=== PATIENT | female | born 1975 | race African-American/Black ===

== ENCOUNTER 2018-01-10 14:07 | Inpatient (IN) | payer SELFPAY ==
[~2018-01-10] VITALS: Ht 165.1 cm; Wt 108.0 kg
[2018-01-10 14:46] LABS: BASOPHILS % 0.9 % (0.0-2.0); EOSINOPHILS % 5.7 % (0.0-5.0); LYMPHOCYTES % 14.2 % (20.0-50.0); MEAN CORPUSCULAR HEMOGLOBIN 13.5 pg (28.0-32.0); MEAN CORPUSCULAR VOLUME 50.8 fL (81.0-99.0); MEAN PLATELET VOLUME 8.2 fl (7.4-10.4); MONOCYTES % 6.6 % (2.0-8.0); NEUTROPHILS % 72.6 % (40.0-76.0); PLATELET 186 x1000/uL (130-400); RED BLOOD CELL COUNT 2.35 mill/uL (4.2-5.4); RED CELL DISTRIBUTION WIDTH 25.7 % (11.6-14.6)
[2018-01-10 14:51] LABS: HEMATOCRIT. 11.9 % (36.0-48.0); HEMOGLOBIN. 3.2 g/dL (12.0-16.0)
[2018-01-10 14:52] LABS: CHLORIDE 107 mEq/L (98-107)
[2018-01-10 14:53] LABS: INR 1.1; PROTHROMBIN TIME 11.5 sec (9.4-11.6)
[2018-01-10 14:59] LABS: PLATELET ESTIMATE NORMAL
[2018-01-10] MEDS ORDERED: NITROGLYCERIN 0.4MG TABLET SL SL PRN (18:15)
[2018-01-10] MEDS ORDERED: KETOROLAC 15MG/ML VIAL IV PRN (18:15)
[2018-01-10] MEDS ORDERED: ZOLPIDEM TARTRATE 5MG TABLET PO PRN (18:15)
[2018-01-10] MEDS ORDERED: ACETAMINOPHEN 325MG TABLET PO PRN (18:15)
[2018-01-10] MEDS ORDERED: DOCUSATE SODIUM 100MG CAPSULE PO PRN (18:15)
[2018-01-10] MEDS ORDERED: GUAIFENESIN 200MG/10ML SUGAR FREE UDC PO PRN (18:15)
[2018-01-10] MEDS ORDERED: NA PHOS,M-B/NA PHOS,DI-BA ENEMA 118ML PR PRN (18:15)
[2018-01-10] MEDS ORDERED: ONDANSETRON HCL 4MG/2ML VIAL IV PRN (18:15)
[2018-01-10] MEDS ORDERED: DIPHENHYDRAMINE 50MG/ML VIAL IV PRN (18:15)
[2018-01-10] MEDS ORDERED: IPRATROPIUM/ALBUTEROL 0.5-3(2.5)MG/3ML NEB INH PRN (18:15)
[2018-01-10 19:58] LABS: TOTAL IRON BINDING CAPACITY 470 ug/dL (250-450)
[2018-01-10 22:00] VITALS: BP 133/76
[2018-01-11] VITALS (19 sets, daily range): BP systolic 106–134; BP diastolic 58–77
[2018-01-11] MEDS: FERROUS SULFATE 300MG/5ML UDC PO SCH ×3 (09:55→18:05)
[2018-01-11] MEDS: PANTOPRAZOLE SODIUM 40 MG/VIAL IV SCH (09:55)
[2018-01-11 10:09] LABS: HEMATOCRIT 18.3 % (36.0-48.0); HEMOGLOBIN 5.5 g/dL (12.0-16.0)
[2018-01-11 10:10] LABS: INR 1.1; PROTHROMBIN TIME 11.6 sec (9.4-11.6)
[2018-01-11] MEDS: IRON SUCROSE COMPLEX 100 MG/5 ML ML IV SCH (13:18)
[2018-01-11 21:10] LABS: HEMOGLOBIN 6.8 g/dL (12.0-16.0)
[2018-01-11 21:11] LABS: HEMATOCRIT 22.9 % (36.0-48.0)
[2018-01-12] VITALS: BP 129/67
[2018-01-12 01:17] VITALS: BP 128/80
[2018-01-12 01:28] VITALS: BP 129/72
[2018-01-12 03:48] VITALS: BP 120/70
[2018-01-12 08:00] VITALS: BP 157/81
[2018-01-12] MEDS: PANTOPRAZOLE SODIUM 40 MG/VIAL IV SCH (08:03)
[2018-01-12] MEDS: IRON SUCROSE COMPLEX 100 MG/5 ML ML IV SCH (08:03)
[2018-01-12] MEDS: FERROUS SULFATE 300MG/5ML UDC PO SCH (08:03)
[2018-01-12 09:45] LABS: HEMATOCRIT 24.6 % (36.0-48.0); HEMOGLOBIN 7.8 g/dL (12.0-16.0)
[2018-01-12 10:33] VITALS: BP 141/89
== END 2018-01-12 12:03 | disposition home or self-care (01) | DRG 532 ==
LOC: ER 15:47 → 8WST 16:12 → EDBEDREQTM 16:15 → EDBEDREQ 16:15 → ENRESERV 20:25
PROVIDERS: ADMIT Internal Medicine; ATTEND Internal Medicine
PROC: 30233N1 Transfusion of Nonautologous Red Blood Cells into Peripheral Vein, Percutaneous Approach (ICD-10-PCS; principal; 2018-01-10)
DX: D25.9 Leiomyoma of uterus, unspecified (principal); E44.1 Mild protein-calorie malnutrition; N92.0 Excessive and frequent menstruation with regular cycle; D64.9 Anemia, unspecified; Z68.39 Body mass index [BMI] 39.0-39.9, adult
CPT/HCPCS: 36415; 36430; 71045; 76856; 80053; 83540; 83550; 83880; 84484; 85014; 85018; 85025; 85049; 85384; 85610; 86850; 86900; 86920; 93005; 99285; C9113; J7030; J7040; J7050; P9016

== ENCOUNTER 2018-08-05 12:24 | Inpatient (IN) | payer SELFPAY ==
[~2018-08-05] VITALS: Ht 170.2 cm; Wt 117.5 kg
[2018-08-05] MEDS ORDERED: SODIUM CHLORIDE 0.9% 1,000 ML IV ONE ×2 (13:05→17:00)
[2018-08-05 14:07] LABS: BASOPHILS % 0.3 % (0.0-2.0); EOSINOPHILS % 0.1 % (0.0-5.0); HEMATOCRIT. 23.1 % (36.0-48.0); HEMOGLOBIN. 7.4 g/dL (12.0-16.0); LYMPHOCYTES % 7.5 % (20.0-50.0); MEAN CORPUSCULAR HEMOGLOBIN 26.8 pg (28.0-32.0); MEAN CORPUSCULAR VOLUME 84.1 fL (81.0-99.0); MEAN PLATELET VOLUME 8.5 fl (7.4-10.4); NEUTROPHILS % 88.1 % (40.0-76.0); PLATELET 608 x1000/uL (130-400); RED BLOOD CELL COUNT 2.74 mill/uL (4.2-5.4); RED CELL DISTRIBUTION WIDTH 16.1 % (11.6-14.6)
[2018-08-05 14:14] LABS: CHLORIDE 102 mEq/L (98-107)
[2018-08-05 14:15] LABS: INR 1.1; PROTHROMBIN TIME 10.9 sec (9.1-11.1)
[2018-08-05 14:25] LABS: B-HCG QUANTITATIVE < 1 mIU/mL (<3)
[2018-08-05] MEDS ORDERED: CEFEPIME 1,000 MG in DEXTROSE 5% WATER 50 ML IV STA (16:51)
[2018-08-05] MEDS ORDERED: VANCOMYCIN 1 G PREMIX 200 ML IV STA (16:51)
[2018-08-05] MEDS ORDERED: DEXT 5%/0.45% NACL 1000ML 1,000 ML IV SCH (17:08)
[2018-08-05] MEDS ORDERED: DOCUSATE SODIUM 100MG CAPSULE PO PRN (17:15)
[2018-08-05] MEDS ORDERED: CLONIDINE 0.1MG TABLET PO PRN (17:15)
[2018-08-05] MEDS ORDERED: LORAZEPAM 2MG/ML CPJ IV PRN (17:15)
[2018-08-05] MEDS ORDERED: ONDANSETRON HCL 4MG/2ML INJ IV PRN (17:15)
[2018-08-05] MEDS ORDERED: ACETAMINOPHEN 650MG/20.3ML UDC GT PRN (17:15)
[2018-08-05 17:41] LABS: TOTAL IRON BINDING CAPACITY 333 ug/dL (250-450)
[2018-08-05 17:49] LABS: HCG SCREEN NEGATIVE
[2018-08-05 18:32] LABS: *AMPHETAMINES SCREEN URINE NEGATIVE (NEGATIVE); *BARBITURATES SCREEN URINE NEGATIVE (NEGATIVE); *BENZODIAZEPINES SCREEN URINE NEGATIVE (NEGATIVE); *COCAINE SCREEN URINE NEGATIVE (NEGATIVE); CANNABINOID URINE SCREEN NEGATIVE (NEGATIVE); METHADONE URINE SCREEN NEGATIVE (NEGATIVE); OPIATES URINE SCREEN NEGATIVE (NEGATIVE); PHENCYCLIDINE URINE SCREEN NEGATIVE (NEGATIVE)
[2018-08-05] MEDS ORDERED: CEFEPIME 1,000 MG in DEXTROSE 5% WATER 50 ML IV ONE (19:52)
[2018-08-05 23:47] VITALS: BP 125/72
[2018-08-06] VITALS (14 sets, daily range): BP systolic 96–144; BP diastolic 44–75
[2018-08-06 01:34] LABS: HEMATOCRIT 22.6 % (36.0-48.0); HEMOGLOBIN 7.3 g/dL (12.0-16.0)
[2018-08-06 07:30] LABS: BASOPHILS % 0.4 % (0.0-2.0); EOSINOPHILS % 0.1 % (0.0-5.0); LYMPHOCYTES % 14.9 % (20.0-50.0); MEAN CORPUSCULAR HEMOGLOBIN 27.6 pg (28.0-32.0); MEAN CORPUSCULAR VOLUME 83.9 fL (81.0-99.0); MEAN PLATELET VOLUME 8.2 fl (7.4-10.4); NEUTROPHILS % 75.6 % (40.0-76.0); PLATELET 418 x1000/uL (130-400); RED BLOOD CELL COUNT 2.49 mill/uL (4.2-5.4); RED CELL DISTRIBUTION WIDTH 15.9 % (11.6-14.6)
[2018-08-06 08:05] LABS: CLARITY URINE TURBID (CLEAR); COLOR URINE YELLOW (YELLOW); KETONES URINE NEGATIVE (NEGATIVE); LEUKOCYTE ESTERASE URINE 1+ (NEGATIVE); NITRITE URINE NEGATIVE (NEGATIVE); OCCULT BLOOD URINE 3+ (NEGATIVE); PROTEIN URINE 2+ (NEGATIVE); SPECIFIC GRAVITY URINE 1.028 (1.005-1.030); UROBILINOGEN URINE 0.2 E.U./dL (0.2-1.0)
[2018-08-06 08:29] LABS: CHLORIDE 105 mEq/L (98-107)
[2018-08-06 08:34] LABS: PHOSPHORUS 2.3 mg/dL (2.5-4.9)
[2018-08-06] MEDS: FERROUS SULFATE 325MG TABLET PO SCH ×3 (08:34→18:24)
[2018-08-06 08:37] LABS: HEMATOCRIT. 20.9 % (36.0-48.0); HEMOGLOBIN. 6.9 g/dL (12.0-16.0)
[2018-08-07] VITALS: BP 151/89
[2018-08-07 03:43] LABS: HEMOGLOBIN 8.6 g/dL (12.0-16.0)
[2018-08-07 04:00] VITALS: BP 143/86
[2018-08-07 06:54] LABS: BASOPHILS % 0.5 % (0.0-2.0); EOSINOPHILS % 0.4 % (0.0-5.0); HEMATOCRIT. 25.9 % (36.0-48.0); HEMOGLOBIN. 8.6 g/dL (12.0-16.0); LYMPHOCYTES % 15.4 % (20.0-50.0); MEAN CORPUSCULAR HEMOGLOBIN 28.1 pg (28.0-32.0); MEAN CORPUSCULAR VOLUME 85.3 fL (81.0-99.0); MONOCYTES % 9.6 % (2.0-8.0); NEUTROPHILS % 74.1 % (40.0-76.0); PLATELET 389 x1000/uL (130-400); RED BLOOD CELL COUNT 3.04 mill/uL (4.2-5.4); RED CELL DISTRIBUTION WIDTH 15.6 % (11.6-14.6)
[2018-08-07 07:22] LABS: CHLORIDE 104 mEq/L (98-107)
[2018-08-07 07:25] LABS: PHOSPHORUS 2.5 mg/dL (2.5-4.9)
[2018-08-07 08:00] VITALS: BP 138/69
[2018-08-07] MEDS: FERROUS SULFATE 325MG TABLET PO SCH ×2 (08:49→13:39)
[2018-08-07 12:00] VITALS: BP 109/68
[2018-08-07 15:18] VITALS: BP 109/68
== END 2018-08-07 17:44 | disposition home or self-care (01) | DRG 463 ==
LOC: ER 12:49 → 6WST 17:04 → EDBEDREQSVC 17:10 → EDBEDREQTM 17:10 → EDBEDREQ 17:10 → ENRESERV 19:33
PROVIDERS: ADMIT Internal Medicine Nephrology; ATTEND Internal Medicine Nephrology
PROC: 30233N1 Transfusion of Nonautologous Red Blood Cells into Peripheral Vein, Percutaneous Approach (ICD-10-PCS; principal; 2018-08-05)
DX: N39.0 Urinary tract infection, site not specified (principal); Z68.41 Body mass index [BMI] 40.0-44.9, adult; D64.9 Anemia, unspecified; D25.9 Leiomyoma of uterus, unspecified; E66.9 Obesity, unspecified; N83.202 Unspecified ovarian cyst, left side; N92.0 Excessive and frequent menstruation with regular cycle
CPT/HCPCS: 36415; 36430; 76856; 80048; 80305; 82728; 83540; 83550; 83605; 83735; 84100; 84702; 84703; 85014; 85018; 86850; 86900; 86920; 87077; 87186; 93005; 96361; 96365; 99291; J0692; J3370; J7030; J7050; J7060; P9016

== ENCOUNTER 2019-10-13 13:07 | Inpatient (IN) | payer MEDICAID ==
[~2019-10-13] VITALS: Ht 165.1 cm; Wt 103.4 kg
[2019-10-13 18:17] LABS: CLARITY URINE CLEAR (CLEAR); COLOR URINE YELLOW (YELLOW); KETONES URINE NEGATIVE (NEGATIVE); LEUKOCYTE ESTERASE URINE TRACE (NEGATIVE); NITRITE URINE NEGATIVE (NEGATIVE); OCCULT BLOOD URINE 3+ (NEGATIVE); PROTEIN URINE TRACE (NEGATIVE); SPECIFIC GRAVITY URINE 1.022 (1.005-1.030); UROBILINOGEN URINE 0.2 E.U./dL (0.2-1.0)
[2019-10-13 18:59] LABS: BASOPHILS % 0.5 % (0.0-2.0); EOSINOPHILS % 1.4 % (0.0-5.0); LYMPHOCYTES % 11.7 % (20.0-50.0); MEAN CORPUSCULAR HEMOGLOBIN 26.9 pg (28.0-32.0); MEAN CORPUSCULAR VOLUME 94.6 fL (81.0-99.0); NEUTROPHILS % 81.4 % (40.0-76.0); PLATELET 529 x1000/uL (130-400); RED BLOOD CELL COUNT 1.73 mill/uL (4.2-5.4); RED CELL DISTRIBUTION WIDTH 20.3 % (11.6-14.6)
[2019-10-13 19:03] LABS: HEMATOCRIT. 16.3 % (36.0-48.0); HEMOGLOBIN. 4.7 g/dL (12.0-16.0)
[2019-10-13 19:11] LABS: CHLORIDE 107 mEq/L (98-107); HCG SCREEN NEGATIVE
[2019-10-13] MEDS ORDERED: SODIUM CHLORIDE 0.9% 1,000 ML IV ONE (19:15)
[2019-10-14 08:00] VITALS: BP 120/60
[2019-10-14] MEDS ORDERED: HYDR25TA PO (09:04)
[2019-10-14] MEDS ORDERED: SENN-170 PO (09:04)
[2019-10-14] MEDS ORDERED: ERTU15TA PO (09:04)
[2019-10-14] MEDS ORDERED: AMLO5TAB88 PO (09:04)
[2019-10-14] MEDS ORDERED: FERR325T6 PO (09:04)
[2019-10-14] MEDS ORDERED: METF-414 PO (09:04)
[2019-10-14 10:02] VITALS: BP 120/60
[2019-10-14 12:00] VITALS: BP 112/60
[2019-10-14 12:30] LABS: BASOPHILS % 0.6 % (0.0-2.0); EOSINOPHILS % 2.4 % (0.0-5.0); HEMOGLOBIN. 7.1 g/dL (12.0-16.0); LYMPHOCYTES % 13.1 % (20.0-50.0); MEAN CORPUSCULAR HEMOGLOBIN 29.4 pg (28.0-32.0); MEAN CORPUSCULAR VOLUME 91.6 fL (81.0-99.0); MEAN PLATELET VOLUME 8.2 fl (7.4-10.4); MONOCYTES % 5.1 % (2.0-8.0); NEUTROPHILS % 78.8 % (40.0-76.0); PLATELET 476 x1000/uL (130-400); RED CELL DISTRIBUTION WIDTH 17.2 % (11.6-14.6)
[2019-10-14 16:00] VITALS: BP 110/63
[2019-10-14 19:36] VITALS: BP 122/65
[2019-10-14 20:00] VITALS: BP 134/71
== END 2019-10-14 20:30 | disposition home or self-care (01) | DRG 532 ==
LOC: ER 13:07 → 5WST 20:09 → ENRESERV 10-14 07:46
PROVIDERS: ADMIT Obstetrics & Gynecology; ATTEND Obstetrics & Gynecology
PROC: 30233N1 Transfusion of Nonautologous Red Blood Cells into Peripheral Vein, Percutaneous Approach (ICD-10-PCS; principal; 2019-10-13)
DX: N93.8 Other specified abnormal uterine and vaginal bleeding (principal); D64.9 Anemia, unspecified; E11.9 Type 2 diabetes mellitus without complications; Z79.84 Long term (current) use of oral hypoglycemic drugs; Z79.899 Other long term (current) drug therapy
CPT/HCPCS: 36415; 71045; 76856; 80053; 81003; 81025; 84703; 85025; 86850; 86900; 86920; 93005; 96360; 96361; 99285; J7030; J7040; P9016

== ENCOUNTER 2021-02-02 14:55 | Inpatient (IN) | payer MEDICAID, OTHER ==
[~2021-02-02] VITALS: Ht 165.1 cm; Wt 91.2 kg
[~2021-02-02 14:55] MED LIST: ERTU15TA PO; FERR325T6 PO; METF-414 PO; METO25TA6 MT; SENN-257 PO; XAR15 MT
[2021-02-02 15:52] LABS: MEAN CORPUSCULAR HEMOGLOBIN 18.7 pg (28.0-32.0); MEAN CORPUSCULAR VOLUME 63.7 fL (81.0-99.0); MEAN PLATELET VOLUME 7.1 fl (7.4-10.4); PLATELET 537 x1000/uL (130-400); RED BLOOD CELL COUNT 2.72 mill/uL (4.2-5.4); RED CELL DISTRIBUTION WIDTH 23.4 % (11.6-14.6)
[2021-02-02 15:58] LABS: PROTHROMBIN TIME 10.9 sec (9.6-11.0)
[2021-02-02 16:03] LABS: HEMATOCRIT. 17.3 % (36.0-48.0); HEMOGLOBIN. 5.1 g/dL (12.0-16.0)
[2021-02-02 16:23] LABS: CHLORIDE 106 mEq/L (98-107)
[2021-02-02 16:40] LABS: PLATELET ESTIMATE INCREASED
[2021-02-02 22:10] VITALS: BP 105/67
[2021-02-02] MEDS ORDERED: HYDROCODONE/ACETAMINOPHEN 10/325MG TABLET PO PRN (23:15)
[2021-02-02] MEDS ORDERED: DEXTROSE 50% WATER 50ML SYRINGE IV PRN (23:15)
[2021-02-02] MEDS ORDERED: ONDANSETRON HCL 4MG/2ML INJ IV PRN (23:15)
[2021-02-02 23:48] LABS: HEMATOCRIT 24.6 % (36.0-48.0); HEMOGLOBIN 7.5 g/dL (12.0-16.0)
[2021-02-02] MEDS ORDERED: IOHEXOL-300 100 ML BOTTLE ONE (23:49)
[2021-02-03] VITALS (13 sets, daily range): BP systolic 114–130; BP diastolic 72–88
[2021-02-03] MEDS ORDERED: DOCU-272 PO (01:49)
[2021-02-03] MEDS ORDERED: RIVA20TA PO (01:49)
[2021-02-03 06:43] LABS: HEMATOCRIT. 24.1 % (36.0-48.0); HEMOGLOBIN. 7.5 g/dL (12.0-16.0); MEAN CORPUSCULAR HEMOGLOBIN 22.4 pg (28.0-32.0); MEAN CORPUSCULAR VOLUME 71.9 fL (81.0-99.0); MEAN PLATELET VOLUME 7.8 fl (7.4-10.4); PLATELET 486 x1000/uL (130-400); RED BLOOD CELL COUNT 3.35 mill/uL (4.2-5.4); RED CELL DISTRIBUTION WIDTH 28.2 % (11.6-14.6)
[2021-02-03 06:56] LABS: CHLORIDE 106 mEq/L (98-107)
[2021-02-03] MEDS: IRON SUCROSE COMPLEX 100 MG/5 ML ML IV SCH (07:42)
[2021-02-03] MEDS: INSULIN LISPRO 100 UNITS/ML SUBCUT SCH ×4 (07:50→21:00)
[2021-02-03] MEDS: BLOOD SUGAR DIAGNOSTIC STRIP TEST SCH ×4 (08:00→21:01)
[2021-02-03] MEDS: FAMOTIDINE 20MG TABLET PO SCH ×2 (08:42→21:04)
[2021-02-03] MEDS ORDERED: *PATIENT'S OWN MEDICATION STORAGE XX SCH (08:45)
[2021-02-03] MEDS ORDERED: CEFTRIAXONE 1 G PREMIX 50 ML IV SCH (12:15)
[2021-02-03] MEDS: CEFTRIAXONE 1,000 MG in DEXTROSE 5% WATER 50 ML IV SCH (13:57)
[2021-02-03 17:15] LABS: CLARITY URINE CLEAR (CLEAR); COLOR URINE YELLOW (YELLOW); KETONES URINE NEGATIVE (NEGATIVE); LEUKOCYTE ESTERASE URINE NEGATIVE (NEGATIVE); NITRITE URINE NEGATIVE (NEGATIVE); OCCULT BLOOD URINE 2+ (NEGATIVE); PROTEIN URINE TRACE (NEGATIVE); SPECIFIC GRAVITY URINE 1.022 (1.005-1.030); UROBILINOGEN URINE 0.2 E.U./dL (0.2-1.0)
[2021-02-03 21:45] LABS: HEMATOCRIT 29.9 % (36.0-48.0); HEMOGLOBIN 9.4 g/dL (12.0-16.0)
[2021-02-04] VITALS: BP 119/83
[2021-02-04 04:00] VITALS: BP 128/85
[2021-02-04 07:04] LABS: HEMOGLOBIN. 9.2 g/dL (12.0-16.0); MEAN CORPUSCULAR HEMOGLOBIN 23.1 pg (28.0-32.0); MEAN PLATELET VOLUME 8.5 fl (7.4-10.4); PLATELET 456 x1000/uL (130-400); RED BLOOD CELL COUNT 3.97 mill/uL (4.2-5.4); RED CELL DISTRIBUTION WIDTH 29.2 % (11.6-14.6)
[2021-02-04 07:09] LABS: CHLORIDE 103 mEq/L (98-107)
[2021-02-04] MEDS: BLOOD SUGAR DIAGNOSTIC STRIP TEST SCH ×4 (07:40→20:48)
[2021-02-04] MEDS: INSULIN LISPRO 100 UNITS/ML SUBCUT SCH ×4 (07:40→20:48)
[2021-02-04] MEDS ORDERED: SODIUM BICARBONATE 4% (2.4MEQ) 5ML VIAL IV ONE (07:53)
[2021-02-04] MEDS ORDERED: LIDOCAINE HCL 1% 20ML VIAL (Pyxis) INJ ONE (07:53)
[2021-02-04 08:00] VITALS: BP 117/80
[2021-02-04] MEDS: IRON SUCROSE COMPLEX 100 MG/5 ML ML IV SCH (09:00)
[2021-02-04] MEDS: FAMOTIDINE 20MG TABLET PO SCH ×2 (09:00→20:48)
[2021-02-04 10:26] LABS: PLATELET ESTIMATE INCREASED
[2021-02-04 12:00] VITALS: BP 117/74
[2021-02-04] MEDS: CEFTRIAXONE 1,000 MG in DEXTROSE 5% WATER 50 ML IV SCH (15:38)
[2021-02-04 16:00] VITALS: BP 115/72
[2021-02-04 20:00] VITALS: BP 125/81
[2021-02-04 22:58] LABS: PLATELET ESTIMATE INCREASED
[2021-02-05] VITALS: BP 121/70
[2021-02-05 04:00] VITALS: BP 110/72
[2021-02-05 06:36] LABS: CHLORIDE 105 mEq/L (98-107)
[2021-02-05 06:47] LABS: HEMATOCRIT. 30.9 % (36.0-48.0); HEMOGLOBIN. 9.6 g/dL (12.0-16.0); MEAN CORPUSCULAR VOLUME 73.6 fL (81.0-99.0); MEAN PLATELET VOLUME 7.3 fl (7.4-10.4); PLATELET 425 x1000/uL (130-400); RED BLOOD CELL COUNT 4.19 mill/uL (4.2-5.4); RED CELL DISTRIBUTION WIDTH 29.8 % (11.6-14.6)
[2021-02-05] MEDS: INSULIN LISPRO 100 UNITS/ML SUBCUT SCH ×2 (07:03→12:38)
[2021-02-05] MEDS: BLOOD SUGAR DIAGNOSTIC STRIP TEST SCH ×2 (07:03→12:38)
[2021-02-05 08:00] VITALS: BP 103/71
[2021-02-05] MEDS: FAMOTIDINE 20MG TABLET PO SCH (09:33)
[2021-02-05] MEDS: IRON SUCROSE COMPLEX 100 MG/5 ML ML IV SCH (09:33)
[2021-02-05 12:00] VITALS: BP 105/69
[2021-02-05] MEDS: CEFTRIAXONE 1,000 MG in DEXTROSE 5% WATER 50 ML IV SCH (12:41)
[2021-02-05 14:09] VITALS: BP 105/69
[2021-02-05 14:35] LABS: PLATELET ESTIMATE INCREASED
== END 2021-02-05 13:34 | disposition home or self-care (01) | DRG 720 ==
LOC: ER 15:18 → 6WST 16:15 → ENRESERV 20:40
PROVIDERS: ADMIT Internal Medicine; ATTEND Internal Medicine
PROC: 30233N1 Transfusion of Nonautologous Red Blood Cells into Peripheral Vein, Percutaneous Approach (ICD-10-PCS; principal; 2021-02-02)
PROC: 0W9G3ZZ Drainage of Peritoneal Cavity, Percutaneous Approach (ICD-10-PCS; 2021-02-04)
DX: A41.51 Sepsis due to Escherichia coli [E. coli] (principal); K65.2 Spontaneous bacterial peritonitis; C78.6 Secondary malignant neoplasm of retroperitoneum and peritoneum; R18.8 Other ascites; C56.9 Malignant neoplasm of unspecified ovary; D50.0 Iron deficiency anemia secondary to blood loss (chronic); E11.9 Type 2 diabetes mellitus without complications; D25.9 Leiomyoma of uterus, unspecified; Z20.822 Contact with and (suspected) exposure to COVID-19; K80.20 Calculus of gallbladder without cholecystitis without obstruction; N39.0 Urinary tract infection, site not specified; N92.0 Excessive and frequent menstruation with regular cycle; Z86.711 Personal history of pulmonary embolism; Z86.718 Personal history of other venous thrombosis and embolism; Z79.01 Long term (current) use of anticoagulants; Z79.899 Other long term (current) drug therapy
CPT/HCPCS: 36415; 49083; 71045; 74177; 80048; 80053; 81003; 82962; 83036; 84145; 85014; 85018; 85025; 85044; 86850; 86900; 86920; 87077; 87186; 87426; 93970; 99291; J0696; J3490; J7040; J7060; P9016; Q9967